=== PATIENT | female | born 1965 | race Caucasian/White ===

== ENCOUNTER → 2016-10-20 | Outpatient (CLI) | payer BC, OTHER ==
--- NOTE | ~2016-10-20 | 2DMMODE ---
[facility] [place] [address] 2 D/M-MODE ECHOCARDIOGRAM Name: DAMEON LOVE Room #: [facility]#: [id number] Admission: 10/20/16 Attend Phys: Ramona Dent Discharge: Date of : 69 Date of Service: 10/20/16 0958 Report #: [id number] THIS REPORT FOR: //name// Transthoracic Echocardiography Ordering physician: Ramona Dent Referring physician: Ramona Dent Juke Box Mechanic: SHERLY Khalil Indications/History: Chemotherapy. BP: 118 / HR: 80bpm Height: 64in Weight: 119.7lb 72 Study data: M-mode, complete 2D, complete spectral Doppler, and color Doppler. Location: Echo laboratory. Routine. Image quality was adequate. The study was technically limited due to breast implants. 2D measurements Normal Normal LVID ED 32.9mm 36-57 IVS ED 8.1mm 6-11 LVID ES 23.3mm 23-40 LVPW ED 9.7mm 6-11 LA volume index 24ml/m2 16-28 AoRoot diam ED 33mm 21-37 LVOT diameter 21mm 18-23 Findings: Left ventricle: The cavity size was normal. Wall thickness was normal. Systolic function was normal. The estimated ejection fraction was in the range of 55% to 60%. Wall motion was normal. Right ventricle: The cavity size was normal. Systolic function was normal. Right atrium: The atrium was normal in size. Left atrium: The atrium was normal in size. Volume index: 24ml/m2 (S). Aortic valve: Structurally normal valve. Trileaflet. Doppler: There was no stenosis. No regurgitation. Peak velocity: 105.7cm/s (S). [address] [address] 2 D/M-MODE ECHOCARDIOGRAM Name: DAMEON LOVE Room #: [facility].Guille#: [id number] Admission: 10/20/16 Attend Phys: Ramona Dent Discharge: Date of : 69 Date of Service: 10/20/16 0958 Report #: [id number] Mitral valve: Structurally normal valve. Doppler: There was no evidence for stenosis. No regurgitation. Peak E-wave velocity: 65.9cm/s. Peak A-wave velocity: 58.9cm/s. Tricuspid valve: Structurally normal valve. Doppler: There was no evidence for stenosis. No regurgitation. Pulmonic valve: Structurally normal valve. Doppler: There was no evidence for stenosis. No regurgitation. Pericardium: There was no pericardial effusion. Aorta: Aortic root: The aortic root was normal in size. Pulmonary artery: Pressure could not be reliably determined due to minimal or absent tricuspid insufficiency jet, but pulmonary hypertension was not suggested. Diastolic function: Normal diastolic function. Systemic veins: Inferior vena cava: The vessel was normal in size; the respirophasic diameter changes were in the normal range (= 50%). Conclusions 1. Left ventricle: Systolic function was normal. The estimated ejection fraction was in the range of 55% to 60%. Wall motion was normal. Normal diastolic function. 2. Aortic valve: Structurally normal valve. Trileaflet. There was no stenosis. No regurgitation. 3. Mitral valve: Structurally normal valve. No regurgitation. 4. Pericardium, extracardiac: There was no pericardial effusion. <ELECTRONICALLY SIGNED> By: Dany Macias MD, [facility] 10/20/16 1039 [id number] Dany Macias MD, FACC /zaki
== END ==
LOC: CATH 08:57 → CV 08:59
DX: Z51.11 Encounter for antineoplastic chemotherapy (principal)